=== PATIENT | female | born 1990 | race Caucasian/White ===

== ENCOUNTER 2021-12-08 20:53 | Emergency (ER) | payer OTHER ==
[2021-12-08 21:23] LABS: HEMOGLOBIN 11.2 gm/dl (12.3-15.3); RED BLOOD COUNT 4.02 M/UL (4.00-5.10); WHITE BLOOD COUNT 5.2 K/UL (4.5-11.0)
[2021-12-08 22:10] LABS: BUN/CREATININE RATIO 32 (0-10)
[2021-12-09] MEDS ORDERED: OMNICEF 300 MG300 MG PO (04:05)
== END 2021-12-09 05:00 | disposition home or self-care (01) ==
LOC: ER1 20:53
PROVIDERS: Physician Assistant
DX: E10.65 Type 1 diabetes mellitus with hyperglycemia (principal); N39.0 Urinary tract infection, site not specified; F17.210 Nicotine dependence, cigarettes, uncomplicated; Z88.8 Allergy status to other drugs, medicaments and biological substances
CPT/HCPCS: 80053; 81001; 82009; 82803; 82962; 83690; 84703; 85025; 96361; 96374; 96375; 96376; 99284; J0696